=== PATIENT | male | born 1955 | race Caucasian/White ===

== ENCOUNTER → 2017-01-07 | Outpatient (CLI) | payer OTHER ==
--- NOTE | 2017-01-07 11:51 | Diagnostic Imaging Report ---
PROCEDURE: MRI right joint upper extremity without contrast. TECHNIQUE: Multiplanar, multisequence non contrast-enhanced MRI of the right upper extremity was accomplished. INDICATION: Right shoulder injury. FINDINGS: There is susceptibility artifact in the proximal humerus and surrounding region related to internal fixation hardware seen. This would be better delineated on a radiograph however multiple screws are seen with possible associated plate along the posterior margin of the proximal humerus. This appears to relate to an old fracture with healing deformity at the neck of the humerus. Please note that significant susceptibility artifact involving this site affects the surrounding structures evaluation on multiple sequences. There is also deformity of the humeral head likely related to a different or concurrent complex old fracture which appears healed with deformity as well. There is acromioclavicular joint osteoarthritis with prominent inferior osteophytes that has minimal impression upon the supraspinatus myotendinous junction. There is a partial tear seen in the supraspinatus and infraspinatus tendons. There is subchondral cyst formation in the head of the humerus near the rotator cuff insertion and medial to it. There is also mild subchondral edema around the acromioclavicular joint. The subscapular tendon appear intact. The long head biceps tendon is not well seen in the bicipital groove with increased signal along its anchor at the superior labrum suggestive of a partial tear or degeneration. Similar finding along the rest of the superior labrum posteriorly is seen. There is normal muscle signal and bulk around the shoulder. The glenohumeral joint demonstrate subchondral focal erosions suggestive of degenerative changes. IMPRESSION: 1. Deformities in the head and neck of the right humerus with susceptibility artifacts from the internal fixation hardware is seen. This results in some limitations in evaluation of the structures around it. 2. Partial tears in the supraspinatus and infraspinatus tendons. 3. Acromioclavicular and glenohumeral joint osteoarthritis. 4. There is increased signal in the superior segment of the labrum and thickening, may relate to degeneration or tear. Dictated by: Dictated on workstation # [id number]
== END ==
LOC: RAD 10:18
PROVIDERS: ATTEND Orthopaedic Surgery
DX: S43.421A Sprain of right rotator cuff capsule, initial encounter (principal); M19.011 Primary osteoarthritis, right shoulder; X58.XXXA Exposure to other specified factors, initial encounter; Y99.8 Other external cause status
CPT/HCPCS: 73221

== ENCOUNTER 2017-03-04 08:00 | Outpatient (RCR) | payer OTHER | END 2017-03-20 11:40 | disposition home or self-care (01) | PROVIDERS: ATTEND Orthopaedic Surgery | DX: M19.011 Primary osteoarthritis, right shoulder (principal) ==

== ENCOUNTER 2018-10-15 05:36 | Outpatient (CLI) | payer OTHER ==
[~2018-10-15] VITALS: Ht 167.6 cm; Wt 78.0 kg
[2018-10-15] MEDS ORDERED: SEMA0.25 SQ (13:01)
[2018-10-15] MEDS ORDERED: OMEG1CAP58 PO (13:01)
[2018-10-15] MEDS ORDERED: SIMV20TA3 PO (13:01)
[2018-10-15] MEDS ORDERED: ASPI-586 PO (13:01)
[2018-10-15] MEDS ORDERED: EZET10TA27 PO (13:01)
[2018-10-15] MEDS ORDERED: METF-397 PO (13:01)
[2018-10-15] MEDS ORDERED: MULT-1056 PO (13:01)
== END 2018-10-15 13:03 | disposition home or self-care (01) ==
LOC: PREOP 05:36
PROVIDERS: ATTEND Surgery
DX: Z01.818 Encounter for other preprocedural examination (principal)

== ENCOUNTER 2018-10-21 07:14 | Day surgery (SDC) | payer OTHER ==
[~2018-10-21] VITALS: Ht 167.6 cm; Wt 78.0 kg
[~2018-10-21 07:14] MED LIST: ASPI-586 PO; EZET10TA27 PO; METF-397 PO; MULT-1056 PO; OMEG1CAP58 PO; SEMA0.25 SQ; SIMV20TA3 PO
[2018-10-21] MEDS ORDERED: LACTATED RINGERS 1,000 ML IV ONE (07:41)
[2018-10-21] MEDS ORDERED: PROPOFOL INJECTION 0 ML IV ONE (07:46)
[2018-10-21] MEDS ORDERED: LACTATED RINGERS 1,000 ML IV STA (07:46)
[2018-10-21] MEDS ORDERED: MIDAZOLAM 2 MG/2 ML (VERSED) VIAL ONE (07:46)
[2018-10-21 07:48] VITALS: BP 103/77
--- NOTE | 2018-10-21 07:59 | Progress Note-Pre Operative ---
Pre-Operative Progress Note H&P Reviewed The H&P was reviewed, patient examined and no changes noted. Date Seen by Provider: Oct 21, 2018 Time Seen by Provider: 07:59 Date H&P Reviewed: Oct 21, 2018 Time H&P Reviewed: 07:59 Pre-Operative Diagnosis: screening colonoscopy TREY ESTES DO Oct 21, 2018 07:59
[2018-10-21] MEDS ORDERED: LISI10TA2 PO (08:08)
[2018-10-21] MEDS ORDERED: PROPOFOL INJECTION 50 ML IV ONE (09:08)
--- NOTE | 2018-10-21 09:16 | Progress Note-Post Operative ---
Post-Operative Progess Note Surgeon (s)/Experimental Technician (s) Surgeon TREY ESTES DO Experimental Technician: NA Pre-Operative Diagnosis screening colonoscopy Post-Operative Diagnosis Internal hemorrhoid Procedure & Operative Findings Date of Procedure 10/21/18 Procedure Performed/Findings Screening colonoscopy Anesthesia Type per VALVE TESTER Estimated Blood Loss Estimated blood loss (mL): None Specimens/Packing Specimens Removed None TREY ESTES DO Oct 21, 2018 09:16
--- NOTE | 2018-10-21 09:18 | Discharge Inst-Simple/Standard ---
Discharge Inst-Standard Patient Instructions/Follow Up Plan of Care/Instructions/FU: Repeat colonoscopy in ten years unless family hx of colon cancer, or personal history of polyps (5 years), and problems prior to that be seen at that time. Activity as Tolerated: Yes Discharge Diet: No Restrictions TREY ESTES DO Oct 21, 2018 09:18
[2018-10-21 09:35] VITALS: BP 94/54
[2018-10-21 09:55] VITALS: BP 99/71
[2018-10-21 10:09] VITALS: BP 99/71
--- NOTE | 2018-10-21 10:45 | Anesthesia-General Post-Op ---
MAC Patient Condition Mental Status/LOC: Same as Preop Cardiovascular: Satisfactory Nausea/Vomiting: Absent Respiratory: Satisfactory Pain: Controlled Complications: Absent Post Op Complications Complications None Follow Up Care/Instructions Patient Instructions None needed. Anesthesiology Discharge Order Discharge Order Patient was seen after the procedure and he was doing well, no complaints, stable vital signs, no apparent adverse anesthesia problems. DANYELLE STAFFORD DO Oct 21, 2018 10:45
--- NOTE | 2018-10-21 15:43 | OPERATIVE REPORT ---
DATE OF SERVICE: 10/21/2018 PREOPERATIVE DIAGNOSIS: Screening colonoscopy. POSTOPERATIVE DIAGNOSIS: Internal hemorrhoids. PROCEDURE: Colonoscopy. SURGEON: Trey Hernandez DO ANESTHESIA: Per ELECTRICAL LINESWORKER. ESTIMATED BLOOD LOSS: None. COMPLICATIONS: None. INDICATIONS: The patient is a 63-year-old male needing screening colonoscopy. He understands risks and benefits of procedure and wished to proceed with procedure. Consent was signed on the chart. DESCRIPTION OF PROCEDURE: The patient was taken to the endoscopy suite, placed in left lateral recumbent position. Timeout was performed. Digital rectal exam was performed. There were no palpable polyps, masses or ulcerations. Scope was inserted in the rectum and advanced all the way to the cecum with minimal difficulty. Prep was adequate. Scope was then slowly retracted back. There were no polyps, masses or ulcerations in the cecum, ascending, transverse, descending and sigmoid colon. Once in the rectum, scope was retroflexed noting some internal hemorrhoids. Scope was returned to its normal position, slowly withdrawn until completely removed, noting no other pathology. The patient tolerated procedure well without any complications and taken to recovery room in stable condition. RECOMMENDATIONS: The patient will need repeat colonoscopy in 10 years unless family history of colon cancer, personal history of colon polyps, which would then be 5 years. If he has any issues before that, he should be reevaluated at that time. Job ID: [id number] DocumentID: [id number] Dictated Date: 10/21/2018 09:16:08 [employer] Mdm Architect Date: 10/21/2018 15:42:30 Dictated By: TREY HERNANDEZ DO
== END 2018-10-21 10:09 | disposition home or self-care (01) ==
LOC: ENDO 07:14
PROVIDERS: ATTEND Surgery
DX: Z12.11 Encounter for screening for malignant neoplasm of colon (principal); K64.8 Other hemorrhoids; E11.9 Type 2 diabetes mellitus without complications; I10 Essential (primary) hypertension; Z87.891 Personal history of nicotine dependence; Z79.02 Long term (current) use of antithrombotics/antiplatelets; Z79.82 Long term (current) use of aspirin; Z79.84 Long term (current) use of oral hypoglycemic drugs; Z79.899 Other long term (current) drug therapy

== ENCOUNTER → 2019-12-11 | Outpatient (CLI) | payer OTHER ==
[~2019-12-11] MED LIST changes: -EZET10TA27 PO; +EZET10TA49 PO; +LISI10TA2 PO; +SIMV20TA26 PO; -SIMV20TA3 PO
--- NOTE | 2019-12-11 09:56 | Diagnostic Imaging Report ---
CLINICAL INDICATION: Patient with left parotid swelling, blocked salivary gland. Patient has some discomfort in that area. EXAM: Axial CT scan of the maxillofacial structures performed without IV contrast with sagittal reformatted images. COMPARISON: None. FINDINGS: There is dental streak artifact which obscures the distal portion of the expected regions of the bilateral main parotid glands and adjacent soft tissue. The parotid glands and visualized portions of the main pancreatic ducts are unremarkable. There are no stones or dilated ducts seen. The bilateral submandibular glands and ducts are unremarkable. There is no neck soft tissue fluid collection or fat stranding seen. There are small lymph nodes seen throughout both sides of the neck. The visualized portions of the nasopharynx, oropharynx, hypopharynx, upper laryngeal soft tissue structures are unremarkable. The visualized portions of the orbits and globes and intracranial structures are unremarkable. Paranasal sinuses are clear. Mastoid air cells are clear. There is bony irregularity and deformity of the nasal bone which may be from remote fracture. The nasal bone is deviated toward the left. IMPRESSION: 1: There is dental streak artifact which obscures a portion of the oral cavity and portions of the main parotid gland ducts. 2: There is no significant salivary gland abnormality seen. There is no salivary gland stone or adjacent inflammation. Dictated by: Dictated on workstation # [id number]
== END ==
LOC: RAD 07:58
PROVIDERS: ATTEND Family Medicine
DX: R68.84 Jaw pain (principal); R22.0 Localized swelling, mass and lump, head
CPT/HCPCS: 70486